=== PATIENT | male | born 1975 | race Hispanic/Latino ===

== ENCOUNTER 2020-05-17 10:39 | Emergency (ER) | payer OTHER, SELFPAY ==
[2020-05-17 11:34] LABS: BASOPHILS % (AUTO) 0.5 % (0.0-5.0); HEMATOCRIT 42.7 % (42-54); MEAN CORPUSCULAR HEMOGLOBIN 28.3 pg (27.0-33.0); MEAN CORPUSCULAR VOLUME 83.2 fL (79-99); MONOCYTES % (AUTO) 6.1 % (3.0-13.0); NEUTROPHILS % (AUTO) 83.9 % (40.0-77.0); PLATELET COUNT (AUTO) 132 K/uL (130-400); RED BLOOD CELL COUNT(AUTO) 5.13 MIL/uL (4.50-6.20); RED CELL DISTRIBUTION WIDTH 13.2 % (11.0-15.5); WHITE BLOOD COUNT (AUTO) 5.6 K/uL (4.8-10.8)
[2020-05-17] MEDS ORDERED: LACTATED RINGERS 1000ML IV ONE (12:00)
[2020-05-17 12:03] LABS: ALANINE AMINOTRANSFERASE 192 U/L (12-78); ALBUMIN 3.2 g/dL (3.5-5.0); ASPARTATE AMINOTRANSFERASE 162 U/L (10-37); BILIRUBIN,TOTAL 0.5 mg/dL (0.2-1.0); CARBON DIOXIDE 30 mmol/L (21-32); CHLORIDE 99 mmol/L (101-111); CREATINE KINASE, TOTAL 109 U/L (21-232); CREATININE 0.8 mg/dL (0.5-1.5); GLOMERULAR FILTR. RATE CALC 113 mL/min (>60); GLUCOSE,RANDOM 114 mg/dL (70-105); MYOGLOBIN 45 ng/mL (10-92); SODIUM SERUM 134 mmol/L (136-145); TOTAL PROTEIN, SERUM 6.9 g/dL (6.0-8.3); TROPONIN I < 0.04 ng/mL (0.00-0.06); UREA NITROGEN, BLOOD 7 mg/dL (7-18)
[2020-05-17 12:13] LABS: INR 1.11 (0.85-1.15)
[2020-05-17 12:15] LABS: PARTIAL THROMBOPLASTIN TIME 29.7 SEC (26.3-35.5)
[2020-05-17] MEDS ORDERED: ACETAMINOPHEN EXTRA STRENGTH 500 MG TABLET ONE (12:17)
[2020-05-17] MEDS ORDERED: POTASSIUM BICARB/CIT AC 25 MEQ TABLET.EFF ONE (12:23)
[2020-05-17 12:47] LABS: BILIRUBIN,URINE Small (NEGATIVE); COLOR,URINE Dark Yellow (YELLOW); GLUCOSE, URINE (UA) TRACE mg/dL (NEGATIVE); KETONES,URINE Negative (NEGATIVE); LEUKOCYTE ESTERASE ,URINE Negative (NEGATIVE); NITRATE,URINE Negative (NEGATIVE); OCCULT BLOOD,URINE Small (NEGATIVE); PH,URINE 6.5 (5.0-8.0); PROTEIN,URINE POS 2+ mg/dL (NEGATIVE)
[2020-05-17 12:51] LABS: APPEARANCE,URINE SLIGHTLY CLOUDY (CLEAR)
[2020-05-17 13:01] LABS: AMORPHOUS SEDIMENT,UR Moderate /LPF (None Seen); BACTERIA,URINE Few /HPF (None Seen); MUCUS,URINE Many LPF (None Seen); SQUAMOUS EPITHELIAL CELL,UR 0-2 /HPF (0-2); WBC,URINE None Seen /HPF (0-1)
== END 2020-05-17 14:23 | disposition home or self-care (01) ==
LOC: EDH 10:39
DX: B34.9 Viral infection, unspecified (principal); E86.0 Dehydration; E87.6 Hypokalemia; Z20.822 Contact with and (suspected) exposure to COVID-19; Z72.0 Tobacco use
CPT/HCPCS: 36415; 71045; 80053; 81001; 82550; 83605; 83874; 84145; 84484; 85025; 85610; 85730; 86140; 86900; 86901; 87040 ×2; 87088; 87426; 87804 ×2; 87880; 93005; 96360; 96361; 99285; J7120; U0003

== ENCOUNTER 2020-05-20 18:40 | Inpatient (IN) | payer OTHER, SELFPAY ==
[~2020-05-20] VITALS: Ht 167.6 cm; Wt 65.9 kg
[2020-05-20] MEDS: 0.9%NACL 1000ML 1,000 ML IV SCH (00:10)
[2020-05-20] MEDS ORDERED: 0.9%NACL 1000ML 1,000 ML IV ONE (19:13)
[2020-05-20 19:31] LABS: APPEARANCE,URINE Clear (CLEAR); BILIRUBIN,URINE Negative (NEGATIVE); COLOR,URINE Dark Yellow (YELLOW); GLUCOSE, URINE (UA) Negative (NEGATIVE); KETONES,URINE Negative (NEGATIVE); LEUKOCYTE ESTERASE ,URINE Small (NEGATIVE); NITRATE,URINE Negative (NEGATIVE); OCCULT BLOOD,URINE Moderate (NEGATIVE); PROTEIN,URINE POS 1+ mg/dL (NEGATIVE); UROBILINOGEN,URINE 0.2 mg/dL (0.2-1.0)
[2020-05-20 19:40] LABS: CREATININE 0.8 mg/dL (0.5-1.5)
[2020-05-20 19:44] LABS: ALBUMIN 2.6 g/dL (3.5-5.0); TOTAL PROTEIN, SERUM 5.9 g/dL (6.0-8.3)
[2020-05-20 19:48] LABS: BACTERIA,URINE Few /HPF (None Seen); RBC,URINE None Seen /HPF (0-1); SQUAMOUS EPITHELIAL CELL,UR 0-2 /HPF (0-2)
[2020-05-20 20:16] LABS: BASOPHILS % (AUTO) 0.6 % (0.0-5.0); EOSINOPHILS % (AUTO) 0.2 % (0.0-8.0); LYMPHOCYTES % (AUTO) 4.5 % (21.0-51.0); MEAN CORPUSCULAR HEMOGLOBIN 28.3 pg (27.0-33.0); MEAN CORPUSCULAR HGB CONC 35.8 g/dL (32.0-36.0); MEAN CORPUSCULAR VOLUME 79.2 fL (79-99); MONOCYTES % (AUTO) 1.1 % (3.0-13.0); NEUTROPHILS % (AUTO) 92.5 % (40.0-77.0); RED CELL DISTRIBUTION WIDTH 13.4 % (11.0-15.5); WHITE BLOOD COUNT (AUTO) 12.4 K/uL (4.8-10.8)
[2020-05-20] MEDS ORDERED: POTASSIUM BICARB/CIT AC 25 MEQ TABLET.EFF ONE (20:22)
[2020-05-20 20:29] LABS: PLATELET COUNT (AUTO) 37 K/uL (130-400)
[2020-05-20] MEDS ORDERED: IOHEXOL-350 75 ML VIAL IV ONE (20:44)
[2020-05-20 20:47] LABS: BAND NEUTROPHILS % (MANUAL) 21 % (0-2); LYMPHOCYTES % (MANUAL) 4 % (22-44); MAN.DIFF COMMENT-IMPRESSION MANUAL DIFFERENTIAL; MONOCYTES % (MANUAL) 2 % (2-9); PLATELET MORPHOLOGY COMMENT MARKED DECREASE; SEGMENTED NEUTROPHILS % 73 % (40-70)
[2020-05-20 21:44] LABS: CRP QUANTITATIVE 351.7 mg/L (0.00-9.0)
[2020-05-20] MEDS ORDERED: POTASSIUM CHLORIDE 10% ELIXIR 20 MEQ/15 ML UDCUP PO PRN (23:00)
[2020-05-20] MEDS: ZOSYN 3.375GM+NS 50ML 50 ML IV SCH (23:00)
[2020-05-20] MEDS ORDERED: POTASSIUM CHLORIDE 20MEQ/100ML 100 ML IV PRN ×2 (23:00)
[2020-05-20] MEDS ORDERED: ONDANSETRON 4MG INJ IV PRN (23:15)
[2020-05-20] MEDS ORDERED: DIPHENHYDRAMINE HCL 25 MG CAPSULE PO PRN (23:15)
[2020-05-20] MEDS ORDERED: DiphenhydrAMINE HCL 50 MG/ML VIAL IV PRN (23:15)
[2020-05-20] MEDS ORDERED: ACETAMINOPHEN 325 MG TAB PO PRN (23:15)
[2020-05-20] MEDS ORDERED: GUAIFENESIN-DM 200/20 MG 10 ML PO PRN (23:15)
[2020-05-20] MEDS ORDERED: MAG/ALUM/SIMETH 30 ML UDCUP PO PRN (23:15)
[2020-05-20] MEDS ORDERED: NITROGLYCERIN 0.4 MG SL TAB SL PRN (23:15)
[2020-05-20] MEDS ORDERED: ZOSYN 3.375GM+NS 50ML 50 ML IV ONE (23:32)
[2020-05-20] MEDS ORDERED: DOXYCYCLINE 100MG+NS 250ML 250 ML IV ONE (23:32)
[2020-05-21] VITALS (7 sets, daily range): BP systolic 97–112; BP diastolic 51–72
[2020-05-21] MEDS ORDERED: 0.9%NACL 1000ML 1,000 ML IV ONE
[2020-05-21 00:46] LABS: BASOPHILS % (AUTO) 0.7 % (0.0-5.0); EOSINOPHILS % (AUTO) 0.1 % (0.0-8.0); HEMATOCRIT 38.9 % (42-54); LYMPHOCYTES % (AUTO) 4.6 % (21.0-51.0); MEAN CORPUSCULAR HEMOGLOBIN 29.1 pg (27.0-33.0); MEAN CORPUSCULAR HGB CONC 36.8 g/dL (32.0-36.0); MEAN CORPUSCULAR VOLUME 79.1 fL (79-99); MONOCYTES % (AUTO) 1.3 % (3.0-13.0); NEUTROPHILS % (AUTO) 92.6 % (40.0-77.0); PLATELET COUNT (AUTO) 33 K/uL (130-400); RED BLOOD CELL COUNT(AUTO) 4.92 MIL/uL (4.50-6.20); RED CELL DISTRIBUTION WIDTH 13.3 % (11.0-15.5); WHITE BLOOD COUNT (AUTO) 13.5 K/uL (4.8-10.8)
[2020-05-21] MEDS ORDERED: POTASSIUM CHLORIDE 10% ELIXIR 20 MEQ/15 ML UDCUP ONE ×2 (00:51→02:49)
[2020-05-21 00:57] LABS: POTASSIUM 3.5 mmol/L (3.5-5.1)
[2020-05-21] MEDS: ACETAMINOPHEN 325 MG TAB PO PRN ×2 (04:28→18:26)
[2020-05-21 05:58] LABS: BASOPHILS % (AUTO) 0.4 % (0.0-5.0); EOSINOPHILS % (AUTO) 0.1 % (0.0-8.0); HEMATOCRIT 34.6 % (42-54); LYMPHOCYTES % (AUTO) 5.7 % (21.0-51.0); MEAN CORPUSCULAR HEMOGLOBIN 28.4 pg (27.0-33.0); MEAN CORPUSCULAR HGB CONC 36.4 g/dL (32.0-36.0); MEAN CORPUSCULAR VOLUME 78.1 fL (79-99); MONOCYTES % (AUTO) 1.7 % (3.0-13.0); NEUTROPHILS % (AUTO) 91.2 % (40.0-77.0); PLATELET COUNT (AUTO) 33 K/uL (130-400); RED BLOOD CELL COUNT(AUTO) 4.43 MIL/uL (4.50-6.20); RED CELL DISTRIBUTION WIDTH 13.2 % (11.0-15.5); WHITE BLOOD COUNT (AUTO) 11.8 K/uL (4.8-10.8)
[2020-05-21 06:27] LABS: BILIRUBIN,TOTAL 1.9 mg/dL (0.2-1.0); CREATININE 0.9 mg/dL (0.5-1.5); POTASSIUM 3.7 mmol/L (3.5-5.1); TOTAL PROTEIN, SERUM 5.1 g/dL (6.0-8.3)
[2020-05-21 06:47] LABS: CRP QUANTITATIVE 294.8 mg/L (0.00-9.0)
[2020-05-21] MEDS: FAMOTIDINE 20MG VIAL IV SCH ×2 (07:51→21:15)
[2020-05-21] MEDS: ZOSYN 3.375GM+NS 50ML 50 ML IV SCH ×3 (07:51→21:15)
[2020-05-21] MEDS: DOXYCYCLINE 100MG+NS 250ML 250 ML IV SCH ×3 (11:21→23:06)
[2020-05-21] MEDS: KCL 20 MEQ ERTAB PO PRN ×2 (16:20→18:38)
[2020-05-21] MEDS: 0.9%NACL 1000ML 1,000 ML IV SCH (21:15)
[2020-05-22 03:50] VITALS: BP 117/67
[2020-05-22 05:01] LABS: BASOPHILS % (AUTO) 0.4 % (0.0-5.0); EOSINOPHILS % (AUTO) 0.1 % (0.0-8.0); HEMATOCRIT 36.2 % (42-54); LYMPHOCYTES % (AUTO) 11.9 % (21.0-51.0); MEAN CORPUSCULAR HEMOGLOBIN 28.1 pg (27.0-33.0); MEAN CORPUSCULAR HGB CONC 35.9 g/dL (32.0-36.0); MEAN CORPUSCULAR VOLUME 78.2 fL (79-99); MONOCYTES % (AUTO) 3.9 % (3.0-13.0); NEUTROPHILS % (AUTO) 82.7 % (40.0-77.0); PLATELET COUNT (AUTO) 29 K/uL (130-400); RED BLOOD CELL COUNT(AUTO) 4.63 MIL/uL (4.50-6.20); RED CELL DISTRIBUTION WIDTH 13.6 % (11.0-15.5); WHITE BLOOD COUNT (AUTO) 14.3 K/uL (4.8-10.8)
[2020-05-22] MEDS: ZOSYN 3.375GM+NS 50ML 50 ML IV SCH ×3 (05:04→22:23)
[2020-05-22 05:26] LABS: BILIRUBIN,TOTAL 1.4 mg/dL (0.2-1.0); CREATININE 0.9 mg/dL (0.5-1.5); POTASSIUM 3.3 mmol/L (3.5-5.1); TOTAL PROTEIN, SERUM 4.9 g/dL (6.0-8.3)
[2020-05-22 07:32] VITALS: BP 109/74
[2020-05-22] MEDS: KCL 20 MEQ ERTAB PO PRN ×3 (08:43→21:24)
[2020-05-22] MEDS: FAMOTIDINE 20MG VIAL IV SCH ×2 (08:44→20:59)
[2020-05-22 11:00] VITALS: BP 104/68
[2020-05-22] MEDS: DOXYCYCLINE 100MG+NS 250ML 250 ML IV SCH ×2 (11:11→22:23)
[2020-05-22] MEDS: NS-20 MEQ KCL 1000ML 1,000 ML IV SCH (15:11)
[2020-05-22 16:04] VITALS: BP 113/72
[2020-05-22 18:08] LABS: HEPATITIS B CORE IGM Negative (Negative); HEPATITIS Bs ANTIGEN SCREEN P Negative (Negative)
[2020-05-22 20:00] VITALS: BP 113/72
[2020-05-23] VITALS: BP 109/66
[2020-05-23] MEDS: NS-20 MEQ KCL 1000ML 1,000 ML IV SCH ×3 (00:15→20:54)
[2020-05-23 04:00] VITALS: BP 116/67
[2020-05-23 05:01] LABS: BASOPHILS % (AUTO) 0.5 % (0.0-5.0); EOSINOPHILS % (AUTO) 0.4 % (0.0-8.0); LYMPHOCYTES % (AUTO) 20.8 % (21.0-51.0); MEAN CORPUSCULAR HEMOGLOBIN 28.1 pg (27.0-33.0); MEAN CORPUSCULAR HGB CONC 35.7 g/dL (32.0-36.0); MEAN CORPUSCULAR VOLUME 78.7 fL (79-99); MONOCYTES % (AUTO) 9.3 % (3.0-13.0); NEUTROPHILS % (AUTO) 67.9 % (40.0-77.0); PLATELET COUNT (AUTO) 34 K/uL (130-400); RED BLOOD CELL COUNT(AUTO) 4.45 MIL/uL (4.50-6.20); RED CELL DISTRIBUTION WIDTH 13.8 % (11.0-15.5)
[2020-05-23 05:33] LABS: ALBUMIN 1.8 g/dL (3.5-5.0); CREATININE 0.9 mg/dL (0.5-1.5); POTASSIUM 3.4 mmol/L (3.5-5.1); THYROID STIMULATING HORMONE 0.67 uIU/mL (0.36-3.74); TOTAL PROTEIN, SERUM 4.9 g/dL (6.0-8.3)
[2020-05-23] MEDS: ZOSYN 3.375GM+NS 50ML 50 ML IV SCH ×3 (05:42→23:13)
[2020-05-23] MEDS: KCL 20 MEQ ERTAB PO PRN ×2 (06:09→23:12)
[2020-05-23 07:30] VITALS: BP 97/67
[2020-05-23] MEDS: THIAMINE HCL 100 MG/ML 2ML VIAL IVP SCH (09:37)
[2020-05-23] MEDS: FAMOTIDINE 20MG VIAL IV SCH ×2 (09:38→20:54)
[2020-05-23] MEDS: DOXYCYCLINE 100MG+NS 250ML 250 ML IV SCH ×2 (09:39→23:12)
[2020-05-23] MEDS: Vitamin B Complex/Vit C/Folic Acid PO SCH (09:39)
[2020-05-23 11:00] VITALS: BP 103/64
[2020-05-23] MEDS ORDERED: LOPERAMIDE 1 MG/7.5 ML UDCUP PO SCH (15:00)
[2020-05-23 16:00] VITALS: BP 102/63
[2020-05-23 20:00] VITALS: BP 112/72
[2020-05-24] VITALS: BP 92/58
[2020-05-24] MEDS: KCL 20 MEQ ERTAB PO PRN ×2 (01:03→06:18)
[2020-05-24 04:00] VITALS: BP 99/59
[2020-05-24 05:21] LABS: BASOPHILS % (AUTO) 0.5 % (0.0-5.0); HEMATOCRIT 30.4 % (42-54); LYMPHOCYTES % (AUTO) 25.2 % (21.0-51.0); MEAN CORPUSCULAR HEMOGLOBIN 28.8 pg (27.0-33.0); MEAN CORPUSCULAR HGB CONC 36.8 g/dL (32.0-36.0); MEAN CORPUSCULAR VOLUME 78.1 fL (79-99); MONOCYTES % (AUTO) 10.8 % (3.0-13.0); NEUTROPHILS % (AUTO) 60.9 % (40.0-77.0); PLATELET COUNT (AUTO) 59 K/uL (130-400); RED BLOOD CELL COUNT(AUTO) 3.89 MIL/uL (4.50-6.20); RED CELL DISTRIBUTION WIDTH 13.8 % (11.0-15.5); WHITE BLOOD COUNT (AUTO) 12.6 K/uL (4.8-10.8)
[2020-05-24] MEDS: NS-20 MEQ KCL 1000ML 1,000 ML IV SCH (05:28)
[2020-05-24 05:43] LABS: ALBUMIN 1.7 g/dL (3.5-5.0); BILIRUBIN,TOTAL 0.8 mg/dL (0.2-1.0); CREATININE 0.7 mg/dL (0.5-1.5); MAGNESIUM 2.4 mg/dL (1.80-2.40); POTASSIUM 3.4 mmol/L (3.5-5.1); TOTAL PROTEIN, SERUM 4.4 g/dL (6.0-8.3)
[2020-05-24] MEDS: ZOSYN 3.375GM+NS 50ML 50 ML IV SCH (06:19)
[2020-05-24 07:16] LABS: HEPATITIS B CORE IGM Negative (Negative); HEPATITIS Bs ANTIGEN SCREEN P Negative (Negative)
[2020-05-24 08:00] VITALS: BP 102/48
[2020-05-24] MEDS: THIAMINE HCL 100 MG/ML 2ML VIAL IVP SCH (08:30)
[2020-05-24] MEDS: FAMOTIDINE 20MG VIAL IV SCH (08:30)
[2020-05-24] MEDS: Vitamin B Complex/Vit C/Folic Acid PO SCH (08:30)
[2020-05-24 11:50] VITALS: BP 86/68
[2020-05-24] MEDS: DOXYCYCLINE 100MG+NS 250ML 250 ML IV SCH (12:06)
[2020-05-24] MEDS ORDERED: DOXY100C5 PO (14:49)
[2020-05-24 15:37] VITALS: BP 86/58
== END 2020-05-24 16:30 | disposition home or self-care (01) | DRG 872 ==
LOC: EDH 18:40 → EDHIP 18:41 → 3CH 23:42
PROVIDERS: ADMIT Family Medicine; ATTEND Family Medicine
DX: A41.9 Sepsis, unspecified organism (principal); E87.1 Hypo-osmolality and hyponatremia; N39.0 Urinary tract infection, site not specified; R17 Unspecified jaundice; D69.6 Thrombocytopenia, unspecified; D64.9 Anemia, unspecified; E87.6 Hypokalemia; K52.9 Noninfective gastroenteritis and colitis, unspecified; I10 Essential (primary) hypertension; R74.8 Abnormal levels of other serum enzymes
CPT/HCPCS: 36415; 74177; 80048; 80053; 80074; 81001; 82270; 82550; 82977; 83010; 83615; 83735; 83935; 84145; 84443; 85025; 86140; 86701; 86757; 87040; 87088; 87177; 87324; 87390; 87426; 87507; 99291; G0378; J2543; J3411; J3480; J3490; J7030; Q9967; U0003

== ENCOUNTER 2023-07-20 08:14 | Emergency (ER) | payer BC, SELFPAY ==
[~2023-07-20] VITALS: Ht 167.6 cm; Wt 65.8 kg
[~2023-07-20 08:14] MED LIST: DOXY100C5 PO
[2023-07-20 08:49] LABS: HEMATOCRIT 43.8 % (42-54); MEAN CORPUSCULAR HEMOGLOBIN 29.1 pg (27.0-33.0); MEAN CORPUSCULAR HGB CONC 33.6 g/dL (32.0-36.0); MEAN CORPUSCULAR VOLUME 86.7 fL (79-99); PLATELET COUNT (AUTO) 232 K/uL (130-400); RED BLOOD CELL COUNT(AUTO) 5.05 MIL/uL (4.50-6.20); RED CELL DISTRIBUTION WIDTH 13.9 % (11.0-15.5); WHITE BLOOD COUNT (AUTO) 9.7 K/uL (4.8-10.8)
[2023-07-20 08:55] LABS: APPEARANCE,URINE TURBID (CLEAR); BILIRUBIN,URINE NEGATIVE (NEGATIVE); COLOR,URINE RED (YELLOW); GLUCOSE, URINE (UA) NEGATIVE (NEGATIVE); KETONES,URINE NEGATIVE (NEGATIVE); LEUKOCYTE ESTERASE ,URINE NEGATIVE Leu/uL (NEGATIVE); NITRATE,URINE POSITIVE (NEGATIVE); OCCULT BLOOD,URINE MODERATE (NEGATIVE); PROTEIN,URINE 30 mg/dL (NEGATIVE); UROBILINOGEN,URINE 0.2 mg/dL (0.2-1.0)
[2023-07-20 08:59] LABS: BACTERIA,URINE Few /HPF (None Seen); RBC,URINE TNTC /HPF (0-1); SQUAMOUS EPITHELIAL CELL,UR Rare /HPF (0-2)
[2023-07-20 09:07] LABS: EOSINOPHILS % (MANUAL) 1 % (1-6); LYMPHOCYTES % (MANUAL) 21 % (22-44); MAN.DIFF COMMENT-IMPRESSION MANUAL DIFFERENTIAL; MONOCYTES % (MANUAL) 3 % (2-9); SEGMENTED NEUTROPHILS % 75 % (40-70); TOTAL CELLS COUNTED 100
[2023-07-20 09:08] LABS: PLATELET MORPHOLOGY COMMENT ADEQUATE
[2023-07-20 09:16] LABS: INR <= 0.93 (0.85-1.15); PROTHROMBIN TIME 10.3 SEC (9.6-11.6)
[2023-07-20] MEDS: KETOROLAC 30MG VIAL (30MG/ML) IVP ONE (09:16)
[2023-07-20] MEDS: CEFTRIAXONE 1G VIAL IM ONE (09:17)
[2023-07-20 09:18] LABS: PARTIAL THROMBOPLASTIN TIME 26.3 SEC (26.3-35.5)
[2023-07-20 09:19] VITALS: BP 120/81; PULSE 62; RESP 16; O2SAT 99
[2023-07-20 09:19] LABS: CREATININE 0.8 mg/dL (0.5-1.3); POTASSIUM 3.5 mmol/L (3.5-5.1)
[2023-07-20 09:24] LABS: ALBUMIN 3.4 g/dL (3.5-5.0); BILIRUBIN,TOTAL 0.3 mg/dL (0.2-1.0); TOTAL PROTEIN, SERUM 6.5 g/dL (6.0-8.3)
[2023-07-20] MEDS ORDERED: SULF1TAB42 PO (09:29)
== END 2023-07-20 09:48 | disposition home or self-care (01) ==
LOC: EDH 08:14
DX: N39.0 Urinary tract infection, site not specified (principal); R31.9 Hematuria, unspecified
CPT/HCPCS: 99284; 96374; 80053; 85025; 85610; 85730; 87088; 81001 ×2; 36415; 96372; J0696; J1885

== ENCOUNTER 2023-07-27 20:31 | Emergency (ER) | payer BC ==
[~2023-07-27] VITALS: Ht 167.6 cm; Wt 65.8 kg
[~2023-07-27 20:31] MED LIST changes: +SULF1TAB42 PO
[2023-07-27 21:21] LABS: BASOPHILS # (AUTO) 0.07 K/uL (0.00-0.20); BASOPHILS % (AUTO) 0.8 % (0.0-5.0); EOSINOPHILS # (AUTO) 0.42 K/uL (0.00-0.70); EOSINOPHILS % (AUTO) 4.8 % (0.0-8.0); HEMATOCRIT 43.8 % (42-54); IMMATURE GRANULOCYTE ABSOLUTE 0.02 K/uL (0-1); LYMPHOCYTES # (AUTO) 2.2 K/uL (1.0-4.8); LYMPHOCYTES % (AUTO) 25.6 % (21.0-51.0); MEAN CORPUSCULAR HEMOGLOBIN 29.1 pg (27.0-33.0); MEAN CORPUSCULAR HGB CONC 33.8 g/dL (32.0-36.0); MEAN CORPUSCULAR VOLUME 86.2 fL (79-99); MONOCYTES # (AUTO) 0.8 K/uL (0.1-1.0); MONOCYTES % (AUTO) 8.6 % (3.0-13.0); NEUTROPHILS # (AUTO) 5.2 K/uL (1.8-7.7); PLATELET COUNT (AUTO) 260 K/uL (130-400); RED BLOOD CELL COUNT(AUTO) 5.08 MIL/uL (4.50-6.20); RED CELL DISTRIBUTION WIDTH 13.9 % (11.0-15.5); WHITE BLOOD COUNT (AUTO) 8.7 K/uL (4.8-10.8)
[2023-07-27] MEDS: 0.9%NACL 1000ML 1,000 ML IV ONE (21:21)
[2023-07-27] MEDS: KETOROLAC 30MG VIAL (30MG/ML) IVP ONE (21:21)
[2023-07-27 21:27] LABS: APPEARANCE,URINE CLEAR (CLEAR); BILIRUBIN,URINE NEGATIVE (NEGATIVE); COLOR,URINE LIGHT-YELLOW (YELLOW); GLUCOSE, URINE (UA) NEGATIVE (NEGATIVE); KETONES,URINE NEGATIVE (NEGATIVE); LEUKOCYTE ESTERASE ,URINE NEGATIVE Leu/uL (NEGATIVE); NITRATE,URINE NEGATIVE (NEGATIVE); PROTEIN,URINE NEGATIVE (NEGATIVE); UROBILINOGEN,URINE 0.2 mg/dL (0.2-1.0)
[2023-07-27 21:30] LABS: ADD UA MICROSCOPIC NO; OCCULT BLOOD,URINE NEGATIVE (NEGATIVE)
[2023-07-27 21:46] LABS: CREATININE 1.3 mg/dL (0.5-1.3); POTASSIUM 3.4 mmol/L (3.5-5.1)
[2023-07-27 21:51] LABS: ALBUMIN 3.9 g/dL (3.5-5.0); BILIRUBIN,TOTAL 0.2 mg/dL (0.2-1.0); TOTAL PROTEIN, SERUM 7.3 g/dL (6.0-8.3)
[2023-07-27] MEDS: POTASSIUM BICARB/CIT AC 25 MEQ TABLET.EFF PO ONE (22:36)
[2023-07-28] MEDS: TAMSULOSIN HCL 0.4 MG CAP.ER.24H PO ONE (00:20)
[2023-07-28] MEDS ORDERED: IBUP-2077 PO (00:22)
[2023-07-28] MEDS ORDERED: TAMS-1 PO (00:22)
[2023-07-28 00:31] VITALS: BP 136/85; PULSE 98; RESP 18; O2SAT 99
== END 2023-07-28 00:32 | disposition home or self-care (01) ==
LOC: EDH 20:31
DX: N20.0 Calculus of kidney (principal); E87.6 Hypokalemia
CPT/HCPCS: 99284; 74176; 96374; 80053; 85025; 81003; 36415; 93005; J7030; J1885; 96361

== ENCOUNTER 2024-08-06 12:18 | Emergency (ER) | payer BC ==
[~2024-08-06] VITALS: Ht 170.2 cm; Wt 64.9 kg
[~2024-08-06 12:18] MED LIST changes: +IBUP-2077 PO; +TAMS-55 PO
[2024-08-06 13:13] LABS: BASOPHILS # (AUTO) 0.06 K/uL (0.00-0.20); BASOPHILS % (AUTO) 0.7 % (0.0-5.0); EOSINOPHILS # (AUTO) 0.18 K/uL (0.00-0.70); HEMATOCRIT 39.9 % (42-54); IMMATURE GRANULOCYTE ABSOLUTE 0.02 K/uL (0-1); LYMPHOCYTES # (AUTO) 1.7 K/uL (1.0-4.8); LYMPHOCYTES % (AUTO) 19.1 % (21.0-51.0); MEAN CORPUSCULAR HEMOGLOBIN 28.8 pg (27.0-33.0); MEAN CORPUSCULAR HGB CONC 33.8 g/dL (32.0-36.0); MEAN CORPUSCULAR VOLUME 85.3 fL (79-99); MONOCYTES # (AUTO) 0.6 K/uL (0.1-1.0); MONOCYTES % (AUTO) 6.9 % (3.0-13.0); NEUTROPHILS # (AUTO) 6.3 K/uL (1.8-7.7); NEUTROPHILS % (AUTO) 71.1 % (40.0-77.0); PLATELET COUNT (AUTO) 219 K/uL (130-400); RED BLOOD CELL COUNT(AUTO) 4.68 MIL/uL (4.50-6.20); WHITE BLOOD COUNT (AUTO) 8.9 K/uL (4.8-10.8)
[2024-08-06 13:18] LABS: CREATININE 0.7 mg/dL (0.5-1.3); POTASSIUM 3.9 mmol/L (3.5-5.1)
--- NOTE | 2024-08-06 13:38 | ERN ---
ED Note History of Present Illness Stated Complaint: BACK PAIN Chief Complaint: Flank Pain Time Seen by MD: 12:19 Time Seen by Midlevel: 12:19 Dictation: The patient is a 48-year-old male with a history of kidney stone who presents to the emergency department with complaints of right flank pain onset 11:50 a.m. that radiates to his suprapubic area. Patient denies any hematuria, denies any fever, denies any nausea or vomiting. Patient reports pain to be similar to the time he had kidney stones. Allergies: Coded Allergies: No Known Drug Allergies (Unverified Allergy, Unknown, 07/27/23) Home Meds Active Scripts Ibuprofen (Ibuprofen 800 mg Tab) 800 Mg Tab, 800 MG PO Q8H PRN for fever or pain for 30 Days, #30 TAB 0 Refills Prov:LISA GIRARD MD 07/28/23 Tamsulosin HCl (Flomax) 0.4 Mg Cap.er.24h, 0.4 MG PO DAILY, #30 CAPSULE.DR Prov:LISA GIRARD MD 07/28/23 Sulfamethoxazole/Trimethoprim (Bactrim Ds Tablet) 800 Mg-160 Mg Tablet, 1 TAB PO BID for 7 Days, #14 TAB 0 Refills Prov:ANNE LERNER 07/20/23 Doxycycline Hyclate (Doxycycline Hyclate) 100 Mg Capsule, 100 MG PO BID for 7 Days, #14 CAP 0 Refills Prov:BECKY BOSS 05/24/20 Past Medical History Past Medical History: No Pertinent History Surgical History: None RN Note Reviewed/Agreed w/PFSH: Yes Review of System Dictation Constitutional: Negative for fever,chills, and weight loss Eyes: Negative for injury, pain,redness, and discharge ENT: Negative for injury,pain or swelling Cardiovascular: Negative for chest pain, palpitations, and edema Respiratory: Negative for shortness of breath, cough, and wheezing, Abdomen/GI: Negative for nausea, vomiting, diarrhea, and constipation positive for lower abdominal pain Back: Negative for injury and pain positive for flank pain : Negative for injury, bleeding and discharge MS/Extremity: Negative for injury and deformity Skin: Negative for rash, and discoloration Neuro: Negative for headache, weakness, numbness, tingling, and seizure Psych: Negative for suicide ideation, homicidal ideation, and hallucinations Initial Vital Sign VS Vital Signs Date Time Temp Pulse Resp B/P (MAP) Pulse Ox O2 Delivery O2 Flow Rate FiO2 08/06/24 13:21 97.0 63 16 108/76 100 Room Air Physical Exam Dictation Vital Signs reviewed General Appearance: Alert, oriented x 3, no acute distress, well developed, nourished. Head and Face: non-traumatic. Eyes: PERRL, pink conjunctivas, eyelid no trauma, anterior chamber with arcus senilis. Ears: Pinnas intact and no signs of trauma or erythema ear canals clear and no discharge TM no erythema Nose: No discharge, no bleeding. Oropharynx: Mouth normal, tongue pink. pharynx clear,no erythema, tonsils no exudates, no abscesses noted, mucous membrane moist Neck: Supple, non-tender, no thyromegaly, no masses, no JVD, no bruits Breast:Deferred Chest:No tenderness, no crepitus, no paradoxical movement, no retractions Lungs:Clear, well-ventilated, symmetric, no rales, no wheezing, no rhonchi, no stridor, good breath sounds bilaterally Heart: Regular rate, regular rhythm, no murmur, no gallops Vascular: no peripheral edema, Abdomen: Soft, positive bowel sounds, nondistended, no guarding, nontender, no rebound, no masses no hepatomegaly, no splenomegaly, no Galvan's sign, no hernias. Rectal: Deferred Genital: Deferred Neurological: Normal speech, motor function intact, sensory function intact Musculoskeletal: Neck nontender, full range of motion, back nontender, full range of motion, Extremities: nontender, full range of motion Skin: Color pink, dry, no turgor, no rash, no lacerations, no abrasions, no contusions. Lymphatic: Deferred Results (Laboratory/Radiology) Laboratory/Radiology Laboratory Tests Test 08/06/24 12:53 08/06/24 13:00 Urine Color YELLOW (YELLOW) Urine Appearance CLEAR (CLEAR) Urine pH 5.5 (5.0-8.0) Urine Specific [place] 1.031 (1.001-1.031) Urine Protein 30 mg/dL (NEGATIVE) H Urine Glucose (UA) NEGATIVE mg/dL (NEGATIVE) Urine Ketones NEGATIVE mg/dL (NEGATIVE) Urine Occult Blood SMALL (NEGATIVE) H Urine Nitrate NEGATIVE (NEGATIVE) Urine Bilirubin NEGATIVE mg/dL (NEGATIVE) Urine Urobilinogen 0.2 mg/dL (0.2-1.0) Urine Leukocyte Esterase NEGATIVE Deniz/uL Urine RBC 11-25 /HPF (0-1) H Urine WBC 2-5 /HPF (0-1) H Urine Squamous Epithelial Cells RARE /HPF (0-2) Urine Bacteria None /HPF (None Seen) White Blood Count 8.9 K/uL (4.8-10.8) Red Blood Count 4.68 MIL/uL (4.50-6.20) Hemoglobin 13.5 g/dL (14.0-18.0) L Hematocrit 39.9 % (42-54) L Mean Corpuscular Volume 85.3 fL (79-99) Mean Corpuscular Hemoglobin 28.8 pg (27.0-33.0) Mean Corpuscular Hemoglobin Concent 33.8 g/dL (32.0-36.0) Red Cell Distribution Width 14.0 % (11.0-15.5) Platelet Count 219 K/uL (130-400) Mean Platelet Volume 9.2 fL (7.5-10.5) Immature Granulocyte % (Auto) 0.2 % (0-1) Neutrophils (%) (Auto) 71.1 % (40.0-77.0) Lymphocytes (%) (Auto) 19.1 % (21.0-51.0) L Monocytes (%) (Auto) 6.9 % (3.0-13.0) Eosinophils (%) (Auto) 2.0 % (0.0-8.0) Basophils (%) (Auto) 0.7 % (0.0-5.0) Neutrophils # (Auto) 6.3 K/uL (1.8-7.7) Lymphocytes # (Auto) 1.7 K/uL (1.0-4.8) Monocytes # (Auto) 0.6 K/uL (0.1-1.0) Eosinophils # (Auto) 0.18 K/uL (0.00-0.70) Basophils # (Auto) 0.06 K/uL (0.00-0.20) Absolute Immature Granulocyte (auto 0.02 K/uL (0-1) Nucleated Red Blood Cells 0.0 % (0.0-0.19) Sodium Level 141 mmol/L (136-145) Potassium Level 3.9 mmol/L (3.5-5.1) Chloride Level 107 mmol/L (101-111) Carbon Dioxide Level 30 mmol/L (21-32) Blood Urea Nitrogen 13 mg/dL (7-18) Creatinine 0.7 mg/dL (0.5-1.3) Glomerular Filtration Rate Calc 115 mL/min (>90) Random Glucose 105 mg/dL (70-105) Total Calcium 8.7 mg/dL (8.5-10.1) REASON: R/O KIDNEY STONES, right flank pain ORDERING PHYSICIAN: PHILIPP GIRARD PROCEDURE: ABD PEL WO - CT ABDOMEN/PELVIS W/O CONTRAST CT ABDOMEN/PELVIS W/O CONTRAST HISTORY: Renal stone COMPARISON: None TECHNIQUE: Multiple sequential axial images of the abdomen and pelvis were obtained from the dome of the diaphragm through symphysis pubis. Patient was not given contrast through intravenous route. Oral contrast was not given. FINDINGS: No pleural effusion is seen bilaterally. There is no evidence of parenchymal disease or pulmonary nodule of the visualized lower lungs. Degenerative changes of the thoracolumbar spine are present. The heart is not enlarged. The liver, spleen, adrenal glands and pancreas are unremarkable. No hydronephrosis is seen . There is right hydronephrosis with hydroureter with 6.2 mm renal stone in the right mid ureter. On the left. No evidence of renal stone is seen. Fecal material is seen in the colon. There are normal size retroperitoneal and mesenteric lymph nodes. No ascites is seen. Atherosclerotic changes are present. Pelvic sidewalls are symmetric bilaterally. Bladder is moderately distended. IMPRESSION: 1. Right hydronephrosis with 6.2 mm renal stone in the right mid ureter. CT was performed with one or more following dose reduction techniques: automated exposure control, adjustment of the mA and kv according to patient's size, or use of a iterative reconstruction technique. Labs Reviewed?: Yes ED Course ED Course Orders Procedure Category Date Status Time Cbc With Differential LAB 08/06/24 Complete 12:50 Urinalysis Profile LAB 08/06/24 Complete 12:50 Basic Metabolic Panel LAB 08/06/24 Complete 12:50 Ct Abdomen/Pelvis W/O CT 08/06/24 Resulted Contrast 12:50 0.9%Nacl 1000ml (Ns PHA 08/06/24 Complete 1000ml) 13:00 Morphine 4mg Syg PHA 08/06/24 Complete (Morphine 4mg Syg) 13:00 Ondansetron 4mg Inj PHA 08/06/24 Complete (Zofran 4mg Inj) 13:00 Ketorolac PHA 08/06/24 Complete Tromethamine 15mg/Ml 15:00 Tamsulosin Hcl PHA 08/06/24 Complete (Flomax) 15:00 Tamsulosin Hcl PHA 08/06/24 Complete (Flomax) 15:01 Current Medications Medications (Trade) Dose Ordered Sig/[place] Route PRN Reason Start Time Stop Time Status Last Admin Dose Admin Ketorolac Tromethamine (toRADol) 15 mg ONCE ONCE IV 08/06/24 15:00 08/06/24 15:01 DC 08/06/24 15:06 Morphine Sulfate (morPHINE 4MG SYG) 4 mg ONCE ONCE IVP 08/06/24 13:00 08/06/24 13:01 DC 08/06/24 13:58 Ondansetron HCl (zoFRAN 4MG INJ) 4 mg ONCE ONCE IVP 08/06/24 13:00 08/06/24 13:01 DC 08/06/24 13:51 Sodium Chloride 1,000 ml @ 0 mls/hr ONCE ONCE IV 08/06/24 13:00 08/06/24 13:01 DC 08/06/24 13:51 Tamsulosin HCl (FloMAX) 0.4 mg ONCE ONCE PO 08/06/24 15:00 08/06/24 15:01 DC 08/06/24 15:06 Tamsulosin HCl (FloMAX) 0.4 mg STK-MED ONCE .ROUTE 08/06/24 15:01 08/06/24 15:01 DC Vital Signs Date Time Temp Pulse Resp B/P (MAP) Pulse Ox O2 Delivery O2 Flow Rate FiO2 08/06/24 13:21 97.0 63 16 108/76 100 Room Air Medical Decision Making MDM The patient is a 48-year-old male with a history of kidney stone who presents to the emergency department with complaints of right flank pain onset 11:50 a.m. that radiates to his suprapubic area. Patient denies any hematuria, denies any fever, denies any nausea or vomiting. Patient reports pain to be similar to the time he had kidney stones. Showed no leukocytosis, mild normocytic anemia, chemistry showed no electrolyte imbalance, normal renal function, urinalysis with small occult blood, negative nitrite, negative leukocyte esterase, CT abdomen and pelvis showed right hydronephrosis with hydroureter with a a 6.2 mm renal stone in the right mid ureteral. Spoke to patient about labs and imaging and patient agreed to be discharged and follow up with urologist as outpatient. Patient currently denies any pain. Patient in no acute distress, nontoxic appearance. Patient will be discharged with Flomax and ibuprofen for pain. Differential diagnosis: Kidney stones, pyelonephritis, gastroenteritis, UTI Need for hospitalization: Patient does not meet criteria for hospitalization. There are no social concerns with this patient. DX & DISP Disposition: Discharge Departure Impression: Primary Impression: Kidney stone on right side Condition: Stable Scripts Tamsulosin HCl (Flomax) 0.4 Mg Cap.er.24h 0.4 MG PO DAILY, #30 CAPSULE.DR Prov: PHILIPP GIRRAD 08/06/24 Ibuprofen (Ibuprofen 800 mg Tab) 800 Mg Tab 800 MG PO Q8H PRN for fever or pain for 30 Days, #30 TAB 0 Refills Prov: PHILIPP GIRARD 08/06/24 Additional Instructions: Please follow up with your primary doctor in 1-2 days. Follow up with urol ogist. If symptoms worsen, you develop severe , fevers. FOLLOW-UP WITH PRIMARY CARE PROVIDER IN 1 TO 2 DAYS. TAKE MEDICATIONS DIRECTED HERE IN THE EMERGENCY ROOM. OKAY TO CONTINUE HOME MEDICATIONS UNLESS OTHERWISE DISCUSSED DURING YOUR VISIT IN THE EMERGENCY ROOM TODAY. RETURN TO YOUR NEAREST EMERGENCY ROOM IF SYMPTOMS WORSEN OR IF THERE IS NO IMPROVEMENT. CALL 911 IF YOU NEED IMMEDIATE ASSISTANCE. TAKE TYLENOL OR MOTRIN [id number] NEEDED AND IF NO CONTRAINDICATIONS ARE PRESENT. INCREASE ORAL HYDRATION. A WOUND CULTURE OR URINE CULTURE WAS ORDERED HERE IN THE EMERGENCY ROOM DEPARTMENT PLEASE FOLLOW-UP WITH PRIMARY CARE PROVIDER AND ADVISE THEM TO GET REPEAT PORTS FROM OUR FACILITY. IF YOU HAD ANY SHERRI WRAP/SPLINTS THAT WERE APPLIED HERE, PLEASE DO NOT REMOVE THEM UNTIL YOU SEE YOUR PRIMARY CARE OR SPECIALTY. Referrals: ANNE MARTIN MD (PCP) SANTANA CHAMPION MD Time of Disposition: 15:24 I have reviewed the case, and I agree with, Diagnosis and Plan PHILIPP GIRARD August 06, 2024 13:38
--- NOTE | 2024-08-06 13:39 | NUR ---
IN CT AT THIS TIME
[2024-08-06] MEDS: 0.9%NACL 1000ML 1,000 ML IV ONE (13:51)
[2024-08-06] MEDS: ondanSETRON 4MG INJ IVP ONE (13:51)
[2024-08-06] MEDS: morPHINE 4 MG SYG IVP ONE (13:58)
[2024-08-06 14:08] LABS: APPEARANCE,URINE CLEAR (CLEAR); BILIRUBIN,URINE NEGATIVE (NEGATIVE); COLOR,URINE YELLOW (YELLOW); GLUCOSE, URINE (UA) NEGATIVE (NEGATIVE); KETONES,URINE NEGATIVE (NEGATIVE); LEUKOCYTE ESTERASE ,URINE NEGATIVE Leu/uL (NEGATIVE); NITRATE,URINE NEGATIVE (NEGATIVE); OCCULT BLOOD,URINE SMALL (NEGATIVE); PH,URINE 5.5 (5.0-8.0); PROTEIN,URINE 30 mg/dL (NEGATIVE); UROBILINOGEN,URINE 0.2 mg/dL (0.2-1.0)
[2024-08-06 14:12] LABS: ADD UA MICROSCOPIC YES
[2024-08-06 14:22] LABS: MUCUS,URINE MANY LPF (None Seen); SQUAMOUS EPITHELIAL CELL,UR RARE /HPF (0-2)
--- NOTE | 2024-08-06 14:40 | HMCIMG ---
CT ABDOMEN/PELVIS W/O CONTRAST HISTORY: Renal stone COMPARISON: None TECHNIQUE: Multiple sequential axial images of the abdomen and pelvis were obtained from the dome of the diaphragm through symphysis pubis. Patient was not given contrast through intravenous route. Oral contrast was not given. FINDINGS: No pleural effusion is seen bilaterally. There is no evidence of parenchymal disease or pulmonary nodule of the visualized lower lungs. Degenerative changes of the thoracolumbar spine are present. The heart is not enlarged. The liver, spleen, adrenal glands and pancreas are unremarkable. No hydronephrosis is seen . There is right hydronephrosis with hydroureter with 6.2 mm renal stone in the right mid ureter. On the left. No evidence of renal stone is seen. Fecal material is seen in the colon. There are normal size retroperitoneal and mesenteric lymph nodes. No ascites is seen. Atherosclerotic changes are present. Pelvic sidewalls are symmetric bilaterally. Bladder is moderately distended. IMPRESSION: 1. Right hydronephrosis with 6.2 mm renal stone in the right mid ureter. CT was performed with one or more following dose reduction techniques: automated exposure control, adjustment of the mA and kv according to patient's size, or use of a iterative reconstruction technique.
[2024-08-06] MEDS: tamSULOsin HCL 0.4 MG CAP.ER.24H PO ONE (15:06)
[2024-08-06] MEDS: ketOROlac 15MG/ML VIAL (15MG/ML) IV ONE (15:06)
[2024-08-06] MEDS: tamSULOsin HCL 0.4 MG CAP.ER.24H ONE (15:06)
[2024-08-06 15:54] VITALS: BP 151/88; PULSE 88; RESP 18; TEMP 97.9; O2SAT 98
== END 2024-08-06 16:00 | disposition home or self-care (01) ==
LOC: EDH 12:18
DX: N13.2 Hydronephrosis with renal and ureteral calculous obstruction (principal); Z79.899 Other long term (current) drug therapy
CPT/HCPCS: 99284; 74176; 96374; 96375; 96361; 80048; 85025; 81001; 36415; J1885; J7030; J2405; J2270

== ENCOUNTER 2024-09-04 00:23 | Emergency (ER) | payer BC ==
[~2024-09-04] VITALS: Ht 167.6 cm; Wt 64.9 kg
--- NOTE | 2024-09-04 01:15 | NUR ---
CALLED IN ER LOBBY, NO ANSWER
[2024-09-04] MEDS: DiphenhydrAMINE HCL 25 MG CAPSULE PO ONE (01:25)
[2024-09-04] MEDS: acetaMINOPHEN 500 MG TABLET PO ONE (01:26)
[2024-09-04] MEDS ORDERED: HYDR453. TP (01:39)
--- NOTE | 2024-09-04 01:43 | ERN ---
General Chief Complaint: Finger Injury Stated Complaint: C/O PAIN TO RT MIDDLE FINGER Time Seen by MD: 00:31 Time Seen by Midlevel: 00:31 Source: patient History of Present Illness Initial Comments 48-year-old male who presents to the emergency department due to right middle finger pain. Patient states he was cutting branches from a tree and does not know if he got bit by something noticed some redness to the finger initiated with pain. Denies any fever, numbness, tingling or further associated symptoms. Denies significant past medical history. Allergies: Coded Allergies: No Known Drug Allergies (Unverified Allergy, Unknown, 07/27/23) Home Meds Active Scripts Tamsulosin HCl (Flomax) 0.4 Mg Cap.er.24h, 0.4 MG PO DAILY, #30 CAPSULE. Prov:PHILIPP GIRARD 08/06/24 Ibuprofen (Ibuprofen 800 mg Tab) 800 Mg Tab, 800 MG PO Q8H PRN for fever or pain for 30 Days, #30 TAB 0 Refills Prov:PHILIPP GIRARD 08/06/24 Ibuprofen (Ibuprofen 800 mg Tab) 800 Mg Tab, 800 MG PO Q8H PRN for fever or pain for 30 Days, #30 TAB 0 Refills Prov:LISA GIRARD MD 07/28/23 Tamsulosin HCl (Flomax) 0.4 Mg Cap.er.24h, 0.4 MG PO DAILY, #30 CAPSULE. Prov:LISA GIRARD MD 07/28/23 Sulfamethoxazole/Trimethoprim (Bactrim Ds Tablet) 800 Mg-160 Mg Tablet, 1 TAB PO BID for 7 Days, #14 TAB 0 Refills Prov:ANNE LERNER 07/20/23 Doxycycline Hyclate (Doxycycline Hyclate) 100 Mg Capsule, 100 MG PO BID for 7 Days, #14 CAP 0 Refills Prov:BECKY BOSS 05/24/20 Past Medical History Past Medical History: No Pertinent History Past Surgical History: None ROS Dictation Constitutional: Negative for fever,chills, and weight loss Eyes: Negative for injury, pain,redness, and discharge ENT: Negative for injury,pain or swelling Cardiovascular: Negative for chest pain, palpitations, and edema Respiratory: Negative for shortness of breath, cough, and wheezing, Abdomen/GI: Negative for abdominal pain, nausea, vomiting, diarrhea, and constipation Back: Negative for injury and pain : Negative for painful urination, bleeding or discharge MS/Extremity: Positive for right middle finger pain Negative for injury and deformity Skin: Negative for rash, and discoloration Neuro: Negative for headache, weakness, numbness, tingling, and seizure Psych: Negative for suicide ideation, homicidal ideation, and hallucinations Physical Exam Physical Exam Dictation General: awake, alert, no acute distress Head/Face: Normocephalic, atraumatic Eyes: PERRL, EOMI, normal conjuctiva Neck: Supple, normal range of motion Cardiovascular: RRR, normal S1/S2 Respiratory: CTAB, no respiratory distress Skin: Warm, dry, normal turgor, no rash. Mild erythema noted on the dorsal aspect of the DIP 3rd digit MS/Extremity: Pulses equal, no cyanosis, neurovascular intact, FROM. Neuro: COAx4, GCS 15, strength 5/5, CN 2-12 intact, normal cerebellar exam, normal gait Psych: Normal behavior, mood, and affect normal MDM MDM: Differential diagnosis: Insect bite, allergic reaction, injury Rationale: 48-year-old male who presents to the emergency department due to right middle finger pain. Patient states he was cutting branches from a tree and does not know if he got bit by something noticed some redness to the finger initiated with pain. Denies any fever, numbness, tingling or further associated symptoms. Denies significant past medical history. Per physical examination patient is in no acute distress, mild erythema noted to the dorsal aspect of the 3rd digit DIP, neurovascularly intact, no ecchymosis, no swelling noted, no open wound. Patient was administered Benadryl and acetaminophen in the ED. Prescribed hydrocortisone for outpatient treatment. Advised to follow up with PCP. Return to the emergency department if any worsening symptoms. Patient verbalized understanding. Patient stable for discharge. There are no social concerns with this patient. I independently interpreted the test that were performed, results were reviewed by me and considered findings on radiology if ordered. Medical management and examination interpretation discussions were had by me with other qualified healthcare professionals as indicated for the patient's care. ED Course Orders Procedure Category Date Status Time Acetaminophen 500mg PHA 09/04/24 Complete Tab (Tylenol 500mg T 01:30 Diphenhydramine Hcl PHA 09/04/24 Complete (Benadryl Cap) 01:30 Current Medications Medications (Trade) Dose Ordered Sig/[place] Route PRN Reason Start Time Stop Time Status Last Admin Dose Admin Acetaminophen (TYLenol 500MG TAB) 1,000 mg ONCE ONCE PO 09/04/24 01:30 09/04/24 01:31 DC 09/04/24 01:26 Diphenhydramine HCl (BENAdryl CAP) 25 mg ONCE ONCE PO 09/04/24 01:30 09/04/24 01:31 DC 09/04/24 01:25 Vital Signs Date Time Temp Pulse Resp B/P (MAP) Pulse Ox O2 Delivery O2 Flow Rate FiO2 09/04/24 00:24 97.9 57 20 113/80 97 Room Air DX & DISP Disposition: Discharge Departure Impression: Primary Impression: Finger pain Condition: Stable Scripts Hydrocortisone (Hydrocortisone) 1 % Cream..g. 1 APPL TP BID for 7 Days, #15 GM 0 Refills apply to affected area(s) Prov: ELDA ROMO 09/04/24 Additional Instructions: Discharge home. Rest. Follow up with primary care DrStarla in 24 hours. Return to the ER for any acute changes or worsening symptoms. If any medications were prescribed take as directed. Okay to continue home medications unless otherwise discussed during your visit in the emergency room today. Patient was also advised to follow-up with primary care physician in 1 to 2 days for continued monitoring. Referrals: ANNE MARTIN MD (PCP) I performed the substantive portion of the visit. I have reviewed and personally made and approve the management plan that is documented in the notes by myself or the JU. I acknowledge full responsibility for the patient's management plan. ELDA ROMO Sep 04, 2024 01:43
[2024-09-04 01:45] VITALS: BP 116/78; PULSE 62; RESP 18; TEMP 98; O2SAT 99
== END 2024-09-04 01:48 | disposition home or self-care (01) ==
LOC: EDH 00:23
DX: M79.644 Pain in right finger(s) (principal); Z79.899 Other long term (current) drug therapy
CPT/HCPCS: 99282; Q0163